=== PATIENT | female | born 1960 | race Caucasian/White ===

== ENCOUNTER 2016-11-25 17:32 | Emergency (ER) | payer SELFPAY ==
[~2016-11-25] VITALS: Ht 165.1 cm; Wt 89.1 kg
[~2016-11-25 17:32] MED LIST: GLIP5TAB13 PO; LISI-313 PO; METF-382 PO; ZOC20 PO
[2016-11-25 17:35] VITALS: Ht 165.1 cm; Wt 89.1 kg
== END 2016-11-25 21:05 | disposition left against medical advice (07) ==
LOC: E/R 17:32
DX: Z53.21 Procedure and treatment not carried out due to patient leaving prior to being seen by health care provider (principal)